=== PATIENT | female | born 2000 | race Caucasian/White ===

== ENCOUNTER 2020-11-07 21:32 | Emergency (ER) | payer OTHER, SELFPAY ==
[2020-11-07 21:33] VITALS: BP 127/97; PULSE 109; RESP 20; TEMP 36.7; O2SAT 100; BMI 23.4
[2020-11-07 21:36] VITALS: BP 127/97; PULSE 109; RESP 20; TEMP 36.7; O2SAT 100
--- NOTE | 2020-11-07 21:50 | RAD_ITS ---
HISTORY: ASTHMA EXAMINATION/TECHNIQUE: XR Chest 2 Views: COMPARISON: None FINDINGS: LINES/DEVICES: None. LUNGS: Symmetric normal radiographic lung expansion. No airspace consolidation. Unremarkable interstitium. No effusion. No pneumothorax. MEDIASTINUM: No cardiomegaly. MUSCULOSKELETAL: No acute osseous finding. RAD/Chest PA and Lateral IMPRESSION: No evidence of consolidative airspace disease or gross pulmonary edema. at 2233 Reported and signed by: Og Dawson MD Electronically Signed: Og Dawson MD at 22:32 EDT Tel , Service support ,
--- NOTE | 2020-11-07 22:20 | ED.VIS.DYS ---
HPI History of Present Illness Chief Complaint: Asthma Narrative Narrative: Patient with past medical history of depression and anxiety presents with her parents because of viral syndrome/Covid symptoms. She states that she has had a head cold for the last 2 days. She feels feverish. She has had a cough that is nonproductive. She feels short of breath. She also states that her arms and legs feel stinging. She denies any exacerbating or alleviating factors. 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 She presents because of the shortness of breath. [facility] Medical History (Updated 11/07/20 @ 23:30 by Rivera Crowder MD) Mental health problem Home Medications albuterol sulfate [Proventil HFA] 2 puff INHALATION Q6H PRN #8.5 g 11/07/20 [Rx Last Taken Unknown] benzonatate [Tessalon Perles] 100 mg PO TID PRN #20 cap 11/07/20 [Rx Last Taken Unknown] quetiapine 200 mg PO DAILY 11/07/20 [History Last Taken Unknown] sertraline 20 mg PO DAILY 11/07/20 [History Last Taken Unknown] trazodone 50 mg PO QHS 11/07/20 [History Last Taken Unknown] Allergy/AdvReac Type Severity Reaction Status Date / Time No Known Allergies Allergy Verified 11/07/20 21:36 Social History Smoking Status: Never smoker ROS ROS ED ROS Narrative Constitutional: Positive subjective fever, positive chills. HEENT: No sore throat. No neck pain. No loss of vision. Positive rhinorrhea. Cardiovascular: No chest pain. No palpitations. No pedal edema. Respiratory: Nonproductive cough, increasing shortness of breath. Abdominal: No abdominal pain. No nausea. No vomiting. Genitourinary: No dysuria. No hematuria. Musculoskeletal: Positive myalgias. No arthralgias. Neurologic: No headaches. No dizziness. No lightheadedness. Skin: No rash. No change in color. Psychiatric: No depression. No anxiety. EXAM Physical Exam Narrative Exam Narrative: Afebrile. Vital signs noted. HEENT: Normocephalic. Atraumatic. PERRL, EOMI. Neck soft and supple. No point tenderness or step off. Positive nasal congestion. Cardiovascular: Regular rate and rhythm. No murmurs, rubs, or gallops appreciated. Respiratory: No tachypnea. Lungs clear to auscultation bilaterally. Occasional cough on examination. Gastrointestinal: Abdomen soft, nontender, with normoactive bowel sounds. No rebound or guarding. Neurological: Awake. Alert. Nonfocal, nonlateralizing. Skin: No rash. Normal color. No pallor. Musculoskeletal: No pedal edema. Full range of motion extremities. Const Vital Signs: 11/07/20 21:33 11/07/20 21:36 11/07/20 22:06 Temperature 98.0 F 98.0 F Temperature Source Temporal Temporal Pulse Rate 109 H 109 H Respiratory Rate 20 H 20 H Respiratory Effort Short of Breath Labored Blood Pressure 127/97 H 127/97 H Blood Pressure Mean 107 107 Pulse Ox 100 100 Oxygen Delivery Method Room Air Room Air MDM MDM MDM Narrative Medical decision making narrative: Nursing protocol started. Chest x-ray was obtained. Rapid Covid was also obtained. Her pulse ox is 100% on room air without evidence of hypoxia. She is afebrile here. Covid swab is negative. Chest x-ray shows no acute process. I do feel that she has more of a viral syndrome. She will be written prescriptions for Tessalon Perles, and for an albuterol inhaler. I feel she be discharged safely home with follow-up to her primary care physician. Return instructions to the emergency department were reviewed. Disposition is discharged home in stable condition. Lab Data Attestation: I reviewed the patient's lab results. Radiography Diagnostic Testing: Radiology Impression Chest X-Ray 11/07/20 21:50 IMPRESSION: No evidence of consolidative airspace disease or gross pulmonary edema. at 2233 Reported and signed by: Og Dawson MD Electronically Signed: Og Dawson MD at 22:32 EDT Tel , Service support , Discharge Plan Triage Chief Complaint: Asthma ED Provider: Rivera Crowder Dx/Rx/DC Orders Clinical Impression: URI (upper respiratory infection), Viral syndrome Prescriptions: New albuterol sulfate [Proventil HFA] 90 mcg/actuation HFA aerosol inhaler 2 puff inhalation Q6H PRN (Reason: shortness of breath or wheezing) Qty: 8.5 RF: 0 benzonatate [Tessalon Perles] 100 mg capsule 100 mg PO TID PRN (Reason: cough) Qty: 20 RF: 0 No Action trazodone 50 mg Tablet 50 mg PO QHS RF: 0 quetiapine 200 mg Tablet 200 mg PO DAILY RF: 0 sertraline 20 mg/mL Concentrate 20 mg PO DAILY RF: 0 Disposition Disposition: Home, Self Care
[2020-11-07 23:45] VITALS: BP 118/76; PULSE 99; RESP 18; O2SAT 97
== END 2020-11-07 23:49 | disposition home or self-care (01) ==
PROVIDERS: Emergency Provider Emergency Medicine
DX: J06.9 Acute upper respiratory infection, unspecified (principal); B34.9 Viral infection, unspecified; F32.9 Major depressive disorder, single episode, unspecified; F41.9 Anxiety disorder, unspecified; Z79.899 Other long term (current) drug therapy
CPT/HCPCS: 71046; 87426; 99284